=== PATIENT | male | born 1955 | race Caucasian/White ===

== ENCOUNTER 2019-12-19 14:04 | Outpatient (CLI) | payer BC | END 2019-12-19 23:59 | disposition home or self-care (01) | LOC: MRI 14:04 | DX: S83.281A Other tear of lateral meniscus, current injury, right knee, initial encounter (principal); M17.11 Unilateral primary osteoarthritis, right knee; M22.41 Chondromalacia patellae, right knee; M25.761 Osteophyte, right knee; R60.0 Localized edema; X58.XXXA Exposure to other specified factors, initial encounter; Y93.89 Activity, other specified; Y92.89 Other specified places as the place of occurrence of the external cause; Y99.8 Other external cause status | CPT/HCPCS: 73721-TC ==

== ENCOUNTER 2020-08-17 10:36 | Outpatient (CLI) | payer BC | END 2020-08-17 23:59 | disposition home or self-care (01) | LOC: MRI 10:36 | PROVIDERS: ATTEND Legal Medicine | DX: M47.817 Spondylosis without myelopathy or radiculopathy, lumbosacral region (principal); M48.07 Spinal stenosis, lumbosacral region; M51.26 Other intervertebral disc displacement, lumbar region | CPT/HCPCS: 72148-TC ==

== ENCOUNTER 2020-09-11 10:06 | Outpatient (CLI) | payer BC | END 2020-09-11 23:59 | disposition home or self-care (01) | LOC: MSC 10:06 | PROVIDERS: ATTEND Anesthesiology | DX: M46.96 Unspecified inflammatory spondylopathy, lumbar region (principal); M51.36 Other intervertebral disc degeneration, lumbar region; M51.26 Other intervertebral disc displacement, lumbar region; M47.27 Other spondylosis with radiculopathy, lumbosacral region; M17.11 Unilateral primary osteoarthritis, right knee; M25.562 Pain in left knee ==

== ENCOUNTER 2021-03-18 14:32 | Outpatient (CLI) | payer BC | END 2021-03-18 23:59 | disposition home or self-care (01) | LOC: MRI 14:32 | PROVIDERS: ATTEND Legal Medicine | DX: M47.22 Other spondylosis with radiculopathy, cervical region (principal); M50.13 Cervical disc disorder with radiculopathy, cervicothoracic region; M48.02 Spinal stenosis, cervical region; M25.78 Osteophyte, vertebrae | CPT/HCPCS: 72141-TC ==

== ENCOUNTER 2021-04-10 07:53 | Outpatient (CLI) | payer BC ==
[2021-04-10 09:03] LABS: ALBUMIN 3.9 g/dL (3.4-5.0); BILIRUBIN,TOTAL 0.8 mg/dL (0.2-1.0); CALCIUM, SERUM 8.6 mg/dL (8.5-10.1); CREATININE 0.9 mg/dL (0.6-1.3); TOTAL PROTEIN, SERUM 7.3 g/dL (6.4-8.2)
== END 2021-04-10 23:59 | disposition home or self-care (01) ==
LOC: CT 07:53
PROVIDERS: ATTEND Legal Medicine
DX: E11.9 Type 2 diabetes mellitus without complications (principal); E78.5 Hyperlipidemia, unspecified
CPT/HCPCS: 36415; 80053-TC

== ENCOUNTER 2021-05-14 08:00 | Outpatient (CLI) | payer BC ==
[2021-05-14 09:37] LABS: ALBUMIN 3.6 g/dL (3.4-5.0); BILIRUBIN,TOTAL 0.4 mg/dL (0.2-1.0); CALCIUM, SERUM 8.2 mg/dL (8.5-10.1); CREATININE 0.8 mg/dL (0.6-1.3); POTASSIUM 4.9 mmol/L (3.5-5.1)
== END 2021-05-14 23:59 | disposition home or self-care (01) ==
LOC: LAB 08:00
PROVIDERS: ATTEND Legal Medicine
DX: I10 Essential (primary) hypertension (principal)
CPT/HCPCS: 36415; 80053-TC

== ENCOUNTER 2021-05-15 08:29 | Outpatient (CLI) | payer BC | END 2021-05-15 23:59 | disposition home or self-care (01) | LOC: CT 08:29 | PROVIDERS: ATTEND Legal Medicine | DX: I67.82 Cerebral ischemia (principal); R22.1 Localized swelling, mass and lump, neck | CPT/HCPCS: 70490-TC ==

== ENCOUNTER 2021-11-15 11:16 | Outpatient (CLI) | payer BC | END 2021-11-15 23:59 | disposition home or self-care (01) | LOC: MRI 11:16 | PROVIDERS: ATTEND Legal Medicine | DX: M47.817 Spondylosis without myelopathy or radiculopathy, lumbosacral region (principal); M48.07 Spinal stenosis, lumbosacral region; M51.26 Other intervertebral disc displacement, lumbar region; M25.78 Osteophyte, vertebrae | CPT/HCPCS: 72148-TC ==

== ENCOUNTER 2022-02-12 11:50 | Outpatient (CLI) | payer BC | END 2022-02-12 23:59 | disposition home or self-care (01) | LOC: MRI 11:50 | PROVIDERS: ATTEND Legal Medicine | DX: M47.22 Other spondylosis with radiculopathy, cervical region (principal); M25.78 Osteophyte, vertebrae; M50.323 Other cervical disc degeneration at C6-C7 level; M48.02 Spinal stenosis, cervical region; M48.8X2 Other specified spondylopathies, cervical region | CPT/HCPCS: 72141-TC ==